=== PATIENT | female | born 1980 | race Caucasian/White ===

== ENCOUNTER 2016-12-28 18:42 | Emergency (ER) | payer OTHER ==
[~2016-12-28] VITALS: Ht 157.5 cm; Wt 108.0 kg
[~2016-12-28 18:42] MED LIST: BACTRIM,SEPT1 TABLET PO; LEVAQUIN750 MG PO; MACROBID100 MG PO; NO MEDICATIONS; PERCOCET 5/31 TABLET PO; PYRIDIUM200 MG PO; TRI-SPRINTEC1 EACH PO; ZOFRAN ODT4 MG PO; ZOFRAN4 MG PO
[2016-12-28 19:03] VITALS: BP 108/84
[2016-12-28] MEDS ORDERED: MOTRIN600 MG PO (20:03)
[2016-12-28] MEDS ORDERED: FLEXERIL10 MG PO (20:03)
== END 2016-12-28 20:38 | disposition home or self-care (01) ==
LOC: EME 18:42 → EXP 18:42
DX: S16.1XXA Strain of muscle, fascia and tendon at neck level, initial encounter (principal); V49.40XA Driver injured in collision with unspecified motor vehicles in traffic accident, initial encounter; Z88.0 Allergy status to penicillin
CPT/HCPCS: 99281; 99284